=== PATIENT | male | born 1980 | race African-American/Black ===

== ENCOUNTER 2019-02-14 08:26 | Emergency (ER) | payer OTHER ==
[~2019-02-14] VITALS: Ht 180.3 cm; Wt 118.0 kg
[~2019-02-14 08:26] MED LIST: Albuterol; [UNRECOGNIZED DRUG - OTHER]
[2019-02-14 10:32] LABS: BASOPHILS % 1.2 % (0.0-2.0); EOSINOPHILS % 7.7 % (0.0-5.0); HEMATOCRIT. 42.3 % (42.0-52.0); HEMOGLOBIN. 13.9 g/dL (14.0-18.0); LYMPHOCYTES % 29.6 % (20.0-50.0); MEAN CORPUSCULAR HEMOGLOBIN 22.6 pg (28.0-32.0); MEAN CORPUSCULAR VOLUME 68.7 fL (80.0-94.0); MEAN PLATELET VOLUME 8.6 fl (7.4-10.4); NEUTROPHILS % 53.5 % (40.0-76.0); PLATELET 328 x1000/uL (130-400); RED BLOOD CELL COUNT 6.16 mill/uL (4.7-6.1); RED CELL DISTRIBUTION WIDTH 15.8 % (11.6-14.6)
[2019-02-14 10:38] LABS: CHLORIDE 101 mEq/L (98-107)
[2019-02-14] MEDS ORDERED: METHYLPREDNISOLONE SOD SUCC 125 MG/2 ML VIAL IV STA (10:57)
[2019-02-14] MEDS ORDERED: ALBUTEROL (0.083%) 2.5MG/3ML NEB HHN STA (10:57)
[2019-02-14] MEDS ORDERED: IPRATROPIUM BROMIDE (0.02%) 0.5MG/2.5ML NEB HHN STA (10:57)
[2019-02-14 11:23] LABS: PLATELET ESTIMATE NORMAL
[2019-02-14 14:11] VITALS: BP 159/93
== END 2019-02-14 14:16 | disposition home or self-care (01) ==
LOC: ER 08:26
DX: J45.909 Unspecified asthma, uncomplicated (principal); E16.2 Hypoglycemia, unspecified; R07.9 Chest pain, unspecified; R20.2 Paresthesia of skin; R06.02 Shortness of breath; I10 Essential (primary) hypertension; Z88.8 Allergy status to other drugs, medicaments and biological substances; Z79.899 Other long term (current) drug therapy
CPT/HCPCS: 36415; 71045; 80053; 83880; 84484; 85025; 93005; 94644; 96374; 99285; J2930; J7611

== ENCOUNTER 2020-01-24 23:08 | Inpatient (IN) | payer OTHER ==
[~2020-01-24] VITALS: Ht 180.3 cm; Wt 119.0 kg
[2020-01-25] MEDS ORDERED: IPRATROPIUM BROMIDE (0.02%) 0.5MG/2.5ML NEB HHN STA (00:19)
[2020-01-25] MEDS ORDERED: ALBUTEROL (0.083%) 2.5MG/3ML NEB HHN STA (00:19)
[2020-01-25] MEDS ORDERED: SODIUM CHLORIDE 0.9% 1,000 ML IV ONE ×3 (00:19→03:00)
[2020-01-25] MEDS ORDERED: CLONIDINE 0.2MG TABLET PO ONE (00:30)
[2020-01-25 00:50] LABS: BASOPHILS % 0.5 % (0.0-2.0); HEMATOCRIT. 40.2 % (42.0-52.0); HEMOGLOBIN. 13.2 g/dL (14.0-18.0); LYMPHOCYTES % 13.9 % (20.0-50.0); MEAN CORPUSCULAR HEMOGLOBIN 22.9 pg (28.0-32.0); MEAN CORPUSCULAR VOLUME 69.9 fL (80.0-94.0); MEAN PLATELET VOLUME 8.5 fl (7.4-10.4); MONOCYTES % 9.7 % (2.0-8.0); NEUTROPHILS % 73.9 % (40.0-76.0); PLATELET 292 x1000/uL (130-400); RED BLOOD CELL COUNT 5.76 mill/uL (4.7-6.1); RED CELL DISTRIBUTION WIDTH 15.6 % (11.6-14.6)
[2020-01-25 00:54] LABS: PLATELET ESTIMATE NORMAL
[2020-01-25 00:59] LABS: PROTHROMBIN TIME 10.9 sec (9.6-11.0)
[2020-01-25 01:00] LABS: CHLORIDE 100 mEq/L (98-107)
[2020-01-25] MEDS ORDERED: LEVOFLOXACIN 500MG PREMIX 100 ML IV NR (01:45)
[2020-01-25] MEDS ORDERED: FLUT1BLS9 IH (06:00)
[2020-01-25] MEDS ORDERED: TRIAMTERENE PO (06:01)
[2020-01-25] MEDS ORDERED: MONT10TA21 PO (06:04)
[2020-01-25 07:08] VITALS: BP 165/92
[2020-01-25] MEDS ORDERED: ACETAMINOPHEN 325MG TABLET PO PRN (07:30)
[2020-01-25] MEDS ORDERED: GUAIFENESIN 200MG/10ML SUGAR FREE UDC PO PRN (07:30)
[2020-01-25] MEDS: SODIUM CHLORIDE 0.9% 1,000 ML IV SCH (07:30)
[2020-01-25] MEDS ORDERED: IPRATROPIUM/ALBUTEROL 0.5-3(2.5)MG/3ML NEB NEB PRN (07:30)
[2020-01-25] MEDS ORDERED: ONDANSETRON HCL 4MG/2ML INJ IV PRN (07:30)
[2020-01-25] MEDS ORDERED: PIPERACILLIN/TAZ 3.375G PREMIX 50 ML IV SCH (07:30)
[2020-01-25 08:00] VITALS: BP_SYST 128; BP_SYST 132; BP_DIAS 74; BP_DIAS 80
[2020-01-25] MEDS: METHYLPREDNISOLONE SOD SUCC 125 MG/2 ML VIAL IV SCH ×3 (08:03→21:24)
[2020-01-25] MEDS ORDERED: ENOXAPARIN 40MG/0.4ML SYR SUBCUT SCH (09:00)
[2020-01-25] MEDS: LEVOFLOXACIN 500MG PREMIX 100 ML IV SCH (09:54)
[2020-01-25 11:03] LABS: BASOPHILS % 0.4 % (0.0-2.0); EOSINOPHILS % 3.9 % (0.0-5.0); HEMATOCRIT. 37.2 % (42.0-52.0); HEMOGLOBIN. 12.1 g/dL (14.0-18.0); LYMPHOCYTES % 19.2 % (20.0-50.0); MEAN CORPUSCULAR HEMOGLOBIN 22.7 pg (28.0-32.0); MEAN CORPUSCULAR VOLUME 69.6 fL (80.0-94.0); MONOCYTES % 13.8 % (2.0-8.0); NEUTROPHILS % 62.7 % (40.0-76.0); PLATELET 291 x1000/uL (130-400); RED BLOOD CELL COUNT 5.34 mill/uL (4.7-6.1); RED CELL DISTRIBUTION WIDTH 15.7 % (11.6-14.6)
[2020-01-25] MEDS: IPRATROPIUM/ALBUTEROL 0.5-3(2.5)MG/3ML NEB HHN SCH ×3 (12:44→16:01)
[2020-01-25 14:56] LABS: CHLORIDE 103 mEq/L (98-107)
[2020-01-25 15:04] LABS: CREATINE KINASE MB FRACTION 1.7 ng/mL (0.5-3.6)
[2020-01-25 15:05] LABS: CREATINE KINASE 288 IU/L (39-308)
[2020-01-25 16:00] VITALS: BP 119/84
[2020-01-25 20:00] VITALS: BP 126/81
[2020-01-25 23:57] LABS: CREATINE KINASE 317 IU/L (39-308)
[2020-01-25 23:58] LABS: CREATINE KINASE MB FRACTION 1.9 ng/mL (0.5-3.6)
[2020-01-26] VITALS: BP 146/88
[2020-01-26] MEDS: SODIUM CHLORIDE 0.9% 1,000 ML IV SCH ×3 (03:30→23:30)
[2020-01-26 04:00] VITALS: BP 163/96
[2020-01-26] MEDS: METHYLPREDNISOLONE SOD SUCC 125 MG/2 ML VIAL IV SCH ×3 (05:16→21:05)
[2020-01-26] MEDS: CLONIDINE 0.1MG TABLET PO PRN (05:49)
[2020-01-26 06:53] LABS: HEMATOCRIT. 38.5 % (42.0-52.0); HEMOGLOBIN. 12.3 g/dL (14.0-18.0); LYMPHOCYTES % 7.8 % (20.0-50.0); MEAN CORPUSCULAR HEMOGLOBIN 22.4 pg (28.0-32.0); MEAN PLATELET VOLUME 9.2 fl (7.4-10.4); MONOCYTES % 3.9 % (2.0-8.0); NEUTROPHILS % 88.3 % (40.0-76.0); PLATELET 313 x1000/uL (130-400); RED CELL DISTRIBUTION WIDTH 15.9 % (11.6-14.6)
[2020-01-26 07:10] LABS: CHLORIDE 107 mEq/L (98-107)
[2020-01-26 08:00] VITALS: BP 160/90
[2020-01-26] MEDS: LEVOFLOXACIN 500MG PREMIX 100 ML IV SCH (08:26)
[2020-01-26] MEDS: ENOXAPARIN 30MG/0.3ML SYR SUBCUT SCH ×2 (08:34→20:56)
[2020-01-26] MEDS: IPRATROPIUM/ALBUTEROL 0.5-3(2.5)MG/3ML NEB HHN SCH ×3 (09:16→17:27)
[2020-01-26 12:00] VITALS: BP 133/74
[2020-01-26 16:00] VITALS: BP 135/83
[2020-01-26] MEDS ORDERED: PNEUMOCOCCAL 23-VAL P-SAC VAC 0.5 ML IM ONE (16:30)
[2020-01-26 20:00] VITALS: BP 144/84
[2020-01-27] VITALS: BP 147/77
[2020-01-27 04:00] VITALS: BP 123/60
[2020-01-27] MEDS: METHYLPREDNISOLONE SOD SUCC 125 MG/2 ML VIAL IV SCH ×2 (06:18→14:26)
[2020-01-27 08:00] VITALS: BP 159/96
[2020-01-27] MEDS: LEVOFLOXACIN 500MG PREMIX 100 ML IV SCH (08:38)
[2020-01-27] MEDS: CLONIDINE 0.1MG TABLET PO PRN (08:38)
[2020-01-27] MEDS: ENOXAPARIN 30MG/0.3ML SYR SUBCUT SCH (08:39)
[2020-01-27] MEDS: SODIUM CHLORIDE 0.9% 1,000 ML IV SCH (09:30)
[2020-01-27] MEDS: IPRATROPIUM/ALBUTEROL 0.5-3(2.5)MG/3ML NEB HHN SCH ×3 (09:35→16:43)
[2020-01-27 12:00] VITALS: BP 132/83
[2020-01-27 16:00] VITALS: BP 134/84
[2020-01-27 16:40] VITALS: BP 134/84
== END 2020-01-27 17:35 | disposition home or self-care (01) | DRG 720 ==
LOC: ER 23:57 → EDBEDREQ 01-25 00:27 → EDBEDREQSVC 01-25 03:29 → EDBEDREQTM 01-25 03:29 → ENRESERV 01-25 03:48 → 5WST 01-25 05:49
PROVIDERS: ADMIT Internal Medicine; ATTEND Internal Medicine
DX: A41.9 Sepsis, unspecified organism (principal); J96.01 Acute respiratory failure with hypoxia; E87.2 Acidosis; J18.9 Pneumonia, unspecified organism; J45.901 Unspecified asthma with (acute) exacerbation; I10 Essential (primary) hypertension; F17.200 Nicotine dependence, unspecified, uncomplicated; J20.9 Acute bronchitis, unspecified
CPT/HCPCS: 36415; 71045; 80048; 80053; 82550; 82553; 83605; 83880; 84145; 84484; 85025; 87070; 87420; 87804; 90732; 93005; 93970; 94640; J1650; J1956; J2930; J7030

== ENCOUNTER 2020-05-28 18:17 | Inpatient (IN) | payer OTHER ==
[~2020-05-28] VITALS: Ht 180.3 cm; Wt 117.9 kg
[~2020-05-28 18:17] MED LIST changes: +FLUT1BLS9 IH; +MONT10TA21 PO; +TRIAMTERENE PO; -[UNRECOGNIZED DRUG - OTHER]
[2020-05-28] MEDS ORDERED: SODIUM CHLORIDE 0.9% 1,000 ML IV ONE ×2 (18:43→19:30)
[2020-05-28] MEDS ORDERED: ONDANSETRON 4MG ODT PO STA (18:43)
[2020-05-28] MEDS ORDERED: LAMOTRIGINE 100MG TABLET PO SCH (19:00)
[2020-05-28] MEDS ORDERED: LAMOTRIGINE 25MG TABLET PO SCH (19:15)
[2020-05-28] MEDS ORDERED: FOLIC ACID 1 MG, THIAMINE HCL 100 MG, MVI, ADULT NO.1 10 ML in DEXTROSE 5% WATER 1,000 ML IV ONE ×4 (19:30)
[2020-05-28] MEDS ORDERED: LORAZEPAM 2MG/ML CPJ IV ONE (19:30)
[2020-05-28 20:03] LABS: BASOPHILS % 0.4 % (0.0-2.0); EOSINOPHILS % 1.9 % (0.0-5.0); HEMATOCRIT. 39.3 % (42.0-52.0); HEMOGLOBIN. 12.8 g/dL (14.0-18.0); LYMPHOCYTES % 19.2 % (20.0-50.0); MEAN CORPUSCULAR HEMOGLOBIN 22.7 pg (28.0-32.0); MEAN CORPUSCULAR VOLUME 69.5 fL (80.0-94.0); MEAN PLATELET VOLUME 9.2 fl (7.4-10.4); MONOCYTES % 8.7 % (2.0-8.0); NEUTROPHILS % 69.8 % (40.0-76.0); PLATELET 344 x1000/uL (130-400); RED BLOOD CELL COUNT 5.66 mill/uL (4.7-6.1); RED CELL DISTRIBUTION WIDTH 14.2 % (11.6-14.6)
[2020-05-28 20:04] LABS: CHLORIDE 102 mEq/L (98-107)
[2020-05-28 20:07] LABS: PROTHROMBIN TIME 10.2 sec (9.6-11.0)
[2020-05-28 20:10] LABS: ETHANOL BLOOD < 10 mg/dL
[2020-05-28 20:43] LABS: CLARITY URINE CLEAR (CLEAR); COLOR URINE YELLOW (YELLOW); KETONES URINE NEGATIVE (NEGATIVE); LEUKOCYTE ESTERASE URINE NEGATIVE (NEGATIVE); NITRITE URINE NEGATIVE (NEGATIVE); OCCULT BLOOD URINE NEGATIVE (NEGATIVE); PROTEIN URINE NEGATIVE (NEGATIVE); SPECIFIC GRAVITY URINE 1.005 (1.005-1.030); UROBILINOGEN URINE 0.2 E.U./dL (0.2-1.0)
[2020-05-28 20:56] LABS: PLATELET ESTIMATE NORMAL
[2020-05-28 21:02] LABS: *BARBITURATES SCREEN URINE NEGATIVE (NEGATIVE)
[2020-05-28 21:03] LABS: *BENZODIAZEPINES SCREEN URINE NEGATIVE (NEGATIVE); *COCAINE SCREEN URINE NEGATIVE (NEGATIVE); CANNABINOID URINE SCREEN NEGATIVE (NEGATIVE); METHADONE URINE SCREEN NEGATIVE (NEGATIVE); OPIATES URINE SCREEN NEGATIVE (NEGATIVE); PHENCYCLIDINE URINE SCREEN NEGATIVE (NEGATIVE)
[2020-05-28 21:04] LABS: *AMPHETAMINES SCREEN URINE NEGATIVE (NEGATIVE)
[2020-05-28] MEDS ORDERED: HYDROCODONE/ACETAMINOPHEN 5/325MG TABLET PO PRN (22:30)
[2020-05-28] MEDS ORDERED: LORAZEPAM 2MG/ML CPJ IV PRN (22:30)
[2020-05-28] MEDS ORDERED: CLONIDINE 0.1MG TABLET PO PRN (22:30)
[2020-05-28 23:00] VITALS: BP 170/100
[2020-05-29] VITALS: BP 125/80
[2020-05-29 04:00] VITALS: BP 125/72
[2020-05-29] MEDS: IPRATROPIUM/ALBUTEROL 0.5-3(2.5)MG/3ML NEB HHN SCH ×3 (04:00→11:47)
[2020-05-29 08:00] VITALS: BP 134/90
[2020-05-29] MEDS ORDERED: METOPROLOL TARTRATE 50MG TABLET PO SCH (09:00)
[2020-05-29] MEDS ORDERED: THIAMINE HCL 100MG TABLET PO SCH (09:00)
[2020-05-29] MEDS ORDERED: FOLIC ACID 1MG TABLET PO SCH (09:00)
[2020-05-29] MEDS ORDERED: FAMOTIDINE 20MG TABLET PO SCH (09:00)
[2020-05-29] MEDS ORDERED: MULTIVITAMINS,THER W-MINERALS TABLET PO SCH (09:00)
[2020-05-29] MEDS ORDERED: CHLORDIAZEPOXIDE 25MG CAPSULE PO SCH (09:00)
[2020-05-29 12:00] VITALS: BP 110/79
[2020-05-29] MEDS ORDERED: L25 PO (12:55)
[2020-05-29] MEDS ORDERED: THIA100T72 PO (12:55)
[2020-05-29] MEDS ORDERED: MULT-1116 MT (12:56)
[2020-05-29] MEDS ORDERED: METO-293 MT (12:56)
[2020-05-29 13:03] VITALS: BP 110/79
== END 2020-05-29 15:05 | disposition home or self-care (01) | DRG 199 ==
LOC: ER 18:17 → 6WST 20:16 → EDBEDREQ 20:19 → EDBEDREQTM 20:19 → ENRESERV 21:15
PROVIDERS: ADMIT Internal Medicine; ATTEND Internal Medicine
DX: I16.0 Hypertensive urgency (principal); F10.239 Alcohol dependence with withdrawal, unspecified; G40.909 Epilepsy, unspecified, not intractable, without status epilepticus; J45.909 Unspecified asthma, uncomplicated; I10 Essential (primary) hypertension; Y90.9 Presence of alcohol in blood, level not specified; E66.9 Obesity, unspecified; D64.9 Anemia, unspecified; Z88.0 Allergy status to penicillin; Z79.899 Other long term (current) drug therapy; Z68.36 Body mass index [BMI] 36.0-36.9, adult; Z71.41 Alcohol abuse counseling and surveillance of alcoholic
CPT/HCPCS: 36415; 71045; 80053; 80305; 80320; 81003; 82962; 83605; 85025; 93005; 94640; 96365; 99285; J2060; J3411; J3490; J7030; J7070; Q0162; G0480

== ENCOUNTER 2020-07-15 07:38 | Emergency (ER) | payer OTHER ==
[~2020-07-15] VITALS: Ht 180.3 cm; Wt 125.0 kg
[~2020-07-15 07:38] MED LIST changes: +L25 PO; +METO-293 MT; +MULT-1116 MT; +THIA100T72 PO
[2020-07-15] MEDS ORDERED: SODIUM CHLORIDE 0.9% 1,000 ML IV ONE (08:37)
[2020-07-15] MEDS ORDERED: ONDANSETRON HCL 4MG/2ML INJ IV STA (08:37)
[2020-07-15] MEDS ORDERED: FAMOTIDINE 20MG/2ML VIAL IV ONE (08:45)
[2020-07-15] MEDS ORDERED: LORAZEPAM 2MG/ML CPJ IV ONE (08:45)
[2020-07-15 08:59] LABS: BASOPHILS % 0.8 % (0.0-2.0); EOSINOPHILS % 0.7 % (0.0-5.0); HEMATOCRIT. 37.5 % (42.0-52.0); HEMOGLOBIN. 12.5 g/dL (14.0-18.0); LYMPHOCYTES % 19.2 % (20.0-50.0); MEAN CORPUSCULAR HEMOGLOBIN 22.3 pg (28.0-32.0); MEAN CORPUSCULAR VOLUME 67.1 fL (80.0-94.0); MEAN PLATELET VOLUME 8.6 fl (7.4-10.4); MONOCYTES % 10.2 % (2.0-8.0); NEUTROPHILS % 69.1 % (40.0-76.0); PLATELET 304 x1000/uL (130-400); RED CELL DISTRIBUTION WIDTH 13.7 % (11.6-14.6)
[2020-07-15 09:04] LABS: CHLORIDE 98 mEq/L (98-107)
[2020-07-15 09:07] LABS: PROTHROMBIN TIME 10.9 sec (9.6-11.0)
[2020-07-15 09:07] LABS: CLARITY URINE CLEAR (CLEAR); COLOR URINE YELLOW (YELLOW); KETONES URINE NEGATIVE (NEGATIVE); LEUKOCYTE ESTERASE URINE NEGATIVE (NEGATIVE); NITRITE URINE NEGATIVE (NEGATIVE); OCCULT BLOOD URINE NEGATIVE (NEGATIVE); PROTEIN URINE NEGATIVE (NEGATIVE); SPECIFIC GRAVITY URINE 1.005 (1.005-1.030); UROBILINOGEN URINE 0.2 E.U./dL (0.2-1.0)
[2020-07-15 09:09] LABS: ETHANOL BLOOD < 10 mg/dL
[2020-07-15 09:27] LABS: PLATELET ESTIMATE NORMAL
[2020-07-15 13:00] VITALS: BP 138/83
== END 2020-07-15 14:30 | disposition home or self-care (01) ==
LOC: ER 07:38
DX: F10.239 Alcohol dependence with withdrawal, unspecified (principal); F41.9 Anxiety disorder, unspecified; I10 Essential (primary) hypertension; J45.909 Unspecified asthma, uncomplicated; Y90.0 Blood alcohol level of less than 20 mg/100 ml; Z88.0 Allergy status to penicillin
CPT/HCPCS: 36415; 71045; 80053; 80320; 81003; 83690; 84484; 85025; 85610; 93005; 96361; 96374; 96375; 99285; J2060; J2405; J3490; J7030; G0480

== ENCOUNTER 2020-09-21 18:43 | Emergency (ER) | payer OTHER ==
[~2020-09-21] VITALS: Ht 180.3 cm; Wt 114.0 kg
[2020-09-21] MEDS ORDERED: ONDANSETRON HCL 4MG/2ML INJ IV STA (19:37)
[2020-09-21] MEDS ORDERED: SODIUM CHLORIDE 0.9% 1,000 ML IV ONE (19:45)
[2020-09-21 20:28] LABS: BASOPHILS % 0.8 % (0.0-2.0); EOSINOPHILS % 1.3 % (0.0-5.0); HEMATOCRIT. 40.4 % (42.0-52.0); HEMOGLOBIN. 13.2 g/dL (14.0-18.0); LYMPHOCYTES % 24.5 % (20.0-50.0); MEAN CORPUSCULAR VOLUME 67.3 fL (80.0-94.0); MONOCYTES % 9.2 % (2.0-8.0); NEUTROPHILS % 64.2 % (40.0-76.0); PLATELET 312 x1000/uL (130-400)
[2020-09-21] MEDS ORDERED: CHLORDIAZEPOXIDE 25MG CAPSULE PO ONE (20:30)
[2020-09-21 20:33] LABS: CHLORIDE 103 mEq/L (98-107)
[2020-09-21 20:37] LABS: CLARITY URINE CLEAR (CLEAR); COLOR URINE YELLOW (YELLOW); KETONES URINE NEGATIVE (NEGATIVE); LEUKOCYTE ESTERASE URINE NEGATIVE (NEGATIVE); NITRITE URINE NEGATIVE (NEGATIVE); OCCULT BLOOD URINE NEGATIVE (NEGATIVE); PH URINE 6.5 (4.5-8.0); PROTEIN URINE NEGATIVE (NEGATIVE); SPECIFIC GRAVITY URINE 1.014 (1.005-1.030); UROBILINOGEN URINE 0.2 E.U./dL (0.2-1.0)
[2020-09-21 20:38] LABS: ETHANOL BLOOD < 10 mg/dL
[2020-09-21 20:49] LABS: *BARBITURATES SCREEN URINE NEGATIVE (NEGATIVE); *BENZODIAZEPINES SCREEN URINE NEGATIVE (NEGATIVE); *COCAINE SCREEN URINE NEGATIVE (NEGATIVE)
[2020-09-21 20:50] LABS: *AMPHETAMINES SCREEN URINE NEGATIVE (NEGATIVE); CANNABINOID URINE SCREEN NEGATIVE (NEGATIVE); METHADONE URINE SCREEN NEGATIVE (NEGATIVE); OPIATES URINE SCREEN NEGATIVE (NEGATIVE); PHENCYCLIDINE URINE SCREEN NEGATIVE (NEGATIVE)
[2020-09-21 21:22] LABS: PLATELET ESTIMATE NORMAL
[2020-09-21] MEDS ORDERED: KETOROLAC 30MG/ML VIAL IV ONE (21:30)
[2020-09-21 22:09] VITALS: BP 144/78
== END 2020-09-21 22:10 | disposition home or self-care (01) ==
LOC: ER 18:43
DX: F10.239 Alcohol dependence with withdrawal, unspecified (principal); Y90.9 Presence of alcohol in blood, level not specified; J45.909 Unspecified asthma, uncomplicated; I10 Essential (primary) hypertension; F41.9 Anxiety disorder, unspecified; Z88.0 Allergy status to penicillin
CPT/HCPCS: 36415; 80053; 80305; 80320; 81003; 85025; 96361; 96374; 96375; 99284; J1885; J2405; J7030; G0480

== ENCOUNTER 2021-01-10 23:21 | Emergency (ER) | payer MEDICAID, OTHER ==
[~2021-01-10] VITALS: Ht 180.3 cm; Wt 110.0 kg
[2021-01-10 23:31] VITALS: BP 132/89
[2021-01-10] MEDS ORDERED: VISCOUS LIDOCAINE 2% 15 ML UDC PO STA (23:51)
[2021-01-10] MEDS ORDERED: MAGNESIUM/ALUMINUM HYDROXIDE/SIMETHICONE 30ML UDC PO STA (23:51)
[2021-01-11] MEDS ORDERED: FAMOTIDINE 20MG TABLET PO ONE
[2021-01-11 00:24] LABS: BASOPHILS % 0.8 % (0.0-2.0); HEMATOCRIT. 38.7 % (42.0-52.0); HEMOGLOBIN. 12.7 g/dL (14.0-18.0); LYMPHOCYTES % 23.9 % (20.0-50.0); MEAN CORPUSCULAR HEMOGLOBIN 21.6 pg (28.0-32.0); MEAN CORPUSCULAR VOLUME 65.9 fL (80.0-94.0); MEAN PLATELET VOLUME 8.3 fl (7.4-10.4); MONOCYTES % 8.1 % (2.0-8.0); NEUTROPHILS % 64.2 % (40.0-76.0); PLATELET 283 x1000/uL (130-400); RED BLOOD CELL COUNT 5.88 mill/uL (4.7-6.1); RED CELL DISTRIBUTION WIDTH 14.3 % (11.6-14.6)
[2021-01-11 00:45] LABS: CHLORIDE 103 mEq/L (98-107)
[2021-01-11 01:10] LABS: PLATELET ESTIMATE NORMAL
[2021-01-11 01:26] LABS: CLARITY URINE CLEAR (CLEAR); COLOR URINE YELLOW (YELLOW); KETONES URINE NEGATIVE (NEGATIVE); LEUKOCYTE ESTERASE URINE NEGATIVE (NEGATIVE); NITRITE URINE NEGATIVE (NEGATIVE); OCCULT BLOOD URINE NEGATIVE (NEGATIVE); PH URINE 7.5 (4.5-8.0); PROTEIN URINE NEGATIVE (NEGATIVE); SPECIFIC GRAVITY URINE 1.009 (1.005-1.030); UROBILINOGEN URINE 0.2 E.U./dL (0.2-1.0)
[2021-01-11] MEDS ORDERED: FAMO-135 MT (01:34)
== END 2021-01-11 01:52 | disposition home or self-care (01) ==
LOC: ER 23:21
DX: K25.9 Gastric ulcer, unspecified as acute or chronic, without hemorrhage or perforation (principal); D64.9 Anemia, unspecified; F10.10 Alcohol abuse, uncomplicated; I10 Essential (primary) hypertension; J45.909 Unspecified asthma, uncomplicated; Y90.9 Presence of alcohol in blood, level not specified; Z88.0 Allergy status to penicillin
CPT/HCPCS: 36415; 80053; 81003; 85025; 93005; 99284

== ENCOUNTER 2021-10-12 18:19 | Emergency (ER) | payer MEDICAID, OTHER ==
[~2021-10-12] VITALS: Ht 180.3 cm; Wt 118.0 kg
[~2021-10-12 18:19] MED LIST changes: +FAMO-135 MT
[2021-10-12 18:22] VITALS: BP 177/92
[2021-10-12] MEDS ORDERED: MAGNESIUM/ALUMINUM HYDROXIDE/SIMETHICONE 30ML UDC PO ONE (19:15)
[2021-10-12] MEDS ORDERED: VISCOUS LIDOCAINE 2% 15 ML UDC PO ONE (19:15)
[2021-10-12] MEDS ORDERED: DIPHENHYDRAMINE 12.5MG/5ML UDC PO ONE (19:15)
[2021-10-12] MEDS ORDERED: METOCLOPRAMIDE HCL 10MG TABLET PO ONE (19:15)
[2021-10-12] MEDS ORDERED: METO-293 MT (20:34)
[2021-10-12] MEDS ORDERED: FAMO-135 MT (20:34)
== END 2021-10-12 20:42 | disposition home or self-care (01) ==
LOC: ER 18:19
DX: R10.13 Epigastric pain (principal); F10.229 Alcohol dependence with intoxication, unspecified; J45.909 Unspecified asthma, uncomplicated; I10 Essential (primary) hypertension; Y90.0 Blood alcohol level of less than 20 mg/100 ml; Z79.899 Other long term (current) drug therapy
CPT/HCPCS: 93005; 99284; Q0163; J8597

== ENCOUNTER 2022-03-01 17:19 | Emergency (ER) | payer MEDICAID, OTHER ==
[~2022-03-01] VITALS: Ht 180.3 cm; Wt 123.0 kg
[2022-03-01] MEDS ORDERED: VISCOUS LIDOCAINE 2% 15 ML UDC PO STA (17:48)
[2022-03-01] MEDS ORDERED: DICYCLOMINE 10 MG/5 ML ORAL SYR PO STA (17:48)
[2022-03-01] MEDS ORDERED: MAGNESIUM/ALUMINUM HYDROXIDE/SIMETHICONE 30ML UDC PO STA (17:48)
[2022-03-01 20:01] LABS: CHLORIDE 100 mEq/L (98-107)
[2022-03-01 20:05] LABS: BASOPHILS % 0.4 % (0.0-2.0); EOSINOPHILS % 0.9 % (0.0-5.0); HEMATOCRIT. 39.7 % (42.0-52.0); HEMOGLOBIN. 12.7 g/dL (14.0-18.0); LYMPHOCYTES % 17.3 % (20.0-50.0); MEAN CORPUSCULAR HEMOGLOBIN 21.6 pg (28.0-32.0); MEAN CORPUSCULAR VOLUME 67.3 fL (80.0-94.0); MEAN PLATELET VOLUME 8.6 fl (7.4-10.4); MONOCYTES % 8.5 % (2.0-8.0); NEUTROPHILS % 72.9 % (40.0-76.0); PLATELET 357 x1000/uL (130-400); RED CELL DISTRIBUTION WIDTH 14.7 % (11.6-14.6)
[2022-03-01] MEDS ORDERED: DICYCLOMINE 10 MG/5 ML ORAL SYR PO NR (20:15)
[2022-03-01] MEDS ORDERED: MAGNESIUM/ALUMINUM HYDROXIDE/SIMETHICONE 30ML UDC PO NR (20:15)
[2022-03-01] MEDS ORDERED: VISCOUS LIDOCAINE 2% 15 ML UDC PO NR (20:15)
[2022-03-01] MEDS ORDERED: OMEP40CA20 MT (20:18)
[2022-03-01 20:39] VITALS: BP 142/76
[2022-03-01 23:30] LABS: PLATELET ESTIMATE NORMAL
== END 2022-03-01 20:42 | disposition home or self-care (01) ==
LOC: ER 17:41
DX: R10.13 Epigastric pain (principal); J45.909 Unspecified asthma, uncomplicated; I10 Essential (primary) hypertension; F10.229 Alcohol dependence with intoxication, unspecified; Y90.0 Blood alcohol level of less than 20 mg/100 ml; Z79.899 Other long term (current) drug therapy
CPT/HCPCS: 36415; 71045; 80053; 85025; 99284

== ENCOUNTER 2022-10-03 17:43 | Emergency (ER) | payer MEDICAID, OTHER ==
[~2022-10-03] VITALS: Ht 180.3 cm; Wt 123.0 kg
[~2022-10-03 17:43] MED LIST changes: +OMEP40CA20 MT
[2022-10-03] MEDS ORDERED: DEXAMETHASONE 10 MG/ML VIAL IV ONE (20:45)
[2022-10-03] MEDS ORDERED: IBUPROFEN 600MG TABLET PO ONE (20:45)
[2022-10-03 20:57] VITALS: BP 153/95
[2022-10-03] MEDS ORDERED: TOPUD MT (21:17)
[2022-10-03] MEDS ORDERED: IBUP-2028 MT (21:17)
== END 2022-10-03 21:57 | disposition home or self-care (01) ==
LOC: ER 17:43
DX: J02.9 Acute pharyngitis, unspecified (principal); I10 Essential (primary) hypertension; Z88.0 Allergy status to penicillin; J45.909 Unspecified asthma, uncomplicated
CPT/HCPCS: 96374; 99283; J1100

== ENCOUNTER 2022-10-12 03:31 | Emergency (ER) | payer MEDICAID, OTHER ==
[~2022-10-12] VITALS: Ht 180.3 cm; Wt 125.9 kg
[~2022-10-12 03:31] MED LIST changes: +IBUP-2028 MT; +TOPUD MT
[2022-10-12 04:10] VITALS: BP 164/98
== END 2022-10-12 05:32 | disposition home or self-care (01) ==
LOC: ER 03:31
DX: K12.2 Cellulitis and abscess of mouth (principal); J45.909 Unspecified asthma, uncomplicated; I10 Essential (primary) hypertension; Z87.891 Personal history of nicotine dependence; Z71.6 Tobacco abuse counseling
CPT/HCPCS: 99281; 99406

== ENCOUNTER 2022-12-08 01:05 | Emergency (ER) | payer MEDICAID, OTHER ==
[~2022-12-08] VITALS: Ht 180.3 cm; Wt 124.4 kg
[2022-12-08] MEDS ORDERED: IBUPROFEN 600MG TABLET PO ONE (02:45)
[2022-12-08] MEDS ORDERED: TOPUD MT (04:56)
[2022-12-08] MEDS ORDERED: FLUT9.9S BOTHNSTRLS (04:56)
[2022-12-08 05:25] VITALS: BP 151/85
== END 2022-12-08 05:32 | disposition home or self-care (01) ==
LOC: ER 01:05
DX: J02.9 Acute pharyngitis, unspecified (principal); J45.909 Unspecified asthma, uncomplicated; I10 Essential (primary) hypertension; Z20.822 Contact with and (suspected) exposure to COVID-19; Z88.0 Allergy status to penicillin; Z79.899 Other long term (current) drug therapy
CPT/HCPCS: 87426; 87804; 99283; C9803

== ENCOUNTER 2023-05-14 17:32 | Emergency (ER) | payer OTHER ==
[~2023-05-14] VITALS: Ht 180.3 cm; Wt 122.0 kg
[~2023-05-14 17:32] MED LIST changes: +FLUT9.9S BOTHNSTRLS; +MONT-46 PO; -MONT10TA21 PO
[2023-05-14 17:35] VITALS: O2SAT 99
[2023-05-14] MEDS ORDERED: VISCOUS LIDOCAINE 2% 15 ML UDC PO STA (18:10)
[2023-05-14] MEDS ORDERED: MAGNESIUM/ALUMINUM HYDROXIDE/SIMETHICONE 30ML UDC PO STA (18:10)
[2023-05-14] MEDS ORDERED: FAMOTIDINE 20MG TABLET PO ONE (18:15)
[2023-05-14] MEDS ORDERED: MECLIZINE 25MG TABLET PO ONE (18:15)
[2023-05-14 19:12] LABS: BASOPHILS % 0.3 % (0.0-2.0); EOSINOPHILS % 0.4 % (0.0-5.0); LYMPHOCYTES % 15.8 % (20.0-50.0); MEAN CORPUSCULAR HEMOGLOBIN 21.6 pg (28.0-32.0); MEAN CORPUSCULAR VOLUME 66.4 fL (80.0-94.0); MEAN PLATELET VOLUME 8.5 fl (7.4-10.4); MONOCYTES % 8.2 % (2.0-8.0); NEUTROPHILS % 75.3 % (40.0-76.0); PLATELET 337 x1000/uL (130-400); RED BLOOD CELL COUNT 6.03 mill/uL (4.7-6.1); RED CELL DISTRIBUTION WIDTH 15.5 % (11.6-14.6)
[2023-05-14] MEDS ORDERED: MECLIZINE 12.5MG TABLET PO NR (19:15)
[2023-05-14 19:17] LABS: CHLORIDE 101 mEq/L (98-107)
[2023-05-14] MEDS ORDERED: ONDANSETRON HCL 4MG TABLET PO ONE (20:00)
[2023-05-14] MEDS ORDERED: ACETAMINOPHEN 325MG TABLET PO ONE (20:00)
[2023-05-14 20:20] LABS: PLATELET ESTIMATE NORMAL
[2023-05-14] MEDS ORDERED: MAG355OR21 MT (21:43)
[2023-05-14] MEDS ORDERED: FAMO-135 MT (21:43)
[2023-05-14] MEDS ORDERED: ONDA4TAB50 MT (21:52)
[2023-05-14] MEDS ORDERED: KETOROLAC 60MG/2ML VIAL IM ONE (22:00)
[2023-05-14 22:15] VITALS: TEMP 98.5
[2023-05-14] MEDS ORDERED: CLONIDINE 0.2MG TABLET PO ONE (22:15)
[2023-05-14] MEDS ORDERED: CLONIDINE 0.1MG TABLET PO NR (22:30)
[2023-05-14 23:07] VITALS: BP 204/116; PULSE 98; RESP 22
== END 2023-05-14 23:36 | disposition home or self-care (01) ==
LOC: ER 17:32
DX: R42 Dizziness and giddiness (principal); R06.02 Shortness of breath; J45.909 Unspecified asthma, uncomplicated; I10 Essential (primary) hypertension
CPT/HCPCS: 80053; 83690; 85025; 84484; 36415; 70450; 74176; 93005; 99285; J8597; Q0162; J1885; Z7610

== ENCOUNTER 2024-11-03 13:33 | Emergency (ER) | payer MEDICAID, OTHER ==
[~2024-11-03] VITALS: Ht 180.3 cm; Wt 125.0 kg
[~2024-11-03 13:33] MED LIST changes: +CHLO25CA11 PO; -L25 PO; +MAG355OR21 MT; +ONDA4TAB50 MT
[2024-11-03 13:46] VITALS: BP 163/93; RESP 18; TEMP 97.5; O2SAT 100
[2024-11-03 13:54] VITALS: PULSE 111; O2SAT 96
[2024-11-03] MEDS ORDERED: DYZ MT (14:21)
[2024-11-03] MEDS ORDERED: SUCR1TAB MT (14:21)
[2024-11-03] MEDS ORDERED: PANT20TA17 MT (14:21)
[2024-11-03] MEDS ORDERED: ALBU90AE INH (14:21)
[2024-11-03 14:45] LABS: BASOPHILS % 0.4 % (0.0-2.0); EOSINOPHILS % 1.5 % (0.0-5.0); HEMATOCRIT. 42.3 % (42.0-52.0); HEMOGLOBIN. 13.5 g/dL (14.0-18.0); LYMPHOCYTES % 21.4 % (20.0-50.0); MEAN CORPUSCULAR HEMOGLOBIN 22.3 pg (28.0-32.0); MEAN CORPUSCULAR VOLUME 69.8 fL (80.0-94.0); MEAN PLATELET VOLUME 8.9 fl (7.4-10.4); MONOCYTES % 10.9 % (2.0-8.0); NEUTROPHILS % 65.8 % (40.0-76.0); PLATELET 301 x1000/uL (130-400); RED BLOOD CELL COUNT 6.06 mill/uL (4.7-6.1); RED CELL DISTRIBUTION WIDTH 15.2 % (11.6-14.6); WHITE BLOOD COUNT 12.4 x1000/uL (4.5-11.0)
[2024-11-03 14:47] LABS: ADD RBC MORPHOLOGY YES; DIFFERENTIAL COMMENT 1
[2024-11-03 14:56] LABS: CARBON DIOXIDE 29 mEq/L (21-32); CHLORIDE 103 mEq/L (98-107); POTASSIUM 3.9 mEq/L (3.5-5.1); SODIUM 137 mEq/L (136-145)
[2024-11-03 15:01] LABS: CREATININE 0.9 mg/dL (0.6-1.3)
[2024-11-03 15:02] LABS: GLUCOSE 108 mg/dL (70-105); UREA NITROGEN BLOOD 13 mg/dL (9-23)
[2024-11-03 15:08] LABS: ANISOCYTOSIS 1+; MICROCYTOSIS 3+; PLATELET ESTIMATE NORMAL
== END 2024-11-03 16:31 | disposition home or self-care (01) ==
LOC: ER 13:33
DX: K29.70 Gastritis, unspecified, without bleeding (principal); J45.909 Unspecified asthma, uncomplicated; I10 Essential (primary) hypertension; Z76.0 Encounter for issue of repeat prescription; Z79.899 Other long term (current) drug therapy; Z79.51 Long term (current) use of inhaled steroids; Z88.0 Allergy status to penicillin; Z87.19 Personal history of other diseases of the digestive system
CPT/HCPCS: 36415; 80048; 85025; 99283

== ENCOUNTER 2025-09-12 09:46 | Emergency (ER) | payer MEDICAID, OTHER ==
[~2025-09-12] VITALS: Ht 180.3 cm; Wt 122.0 kg
[~2025-09-12 09:46] MED LIST changes: +ALBU90AE INH; +DYZ MT; +PANT20TA17 MT; +SUCR1TAB MT
[2025-09-12 09:52] VITALS: BP 157/99; TEMP 37; O2SAT 97
[2025-09-12 10:04] VITALS: PULSE 89; RESP 18; O2SAT 97
[2025-09-12] MEDS ORDERED: ALBU18HF2 IH (10:28)
[2025-09-12] MEDS ORDERED: TRIA50CA2 PO (10:28)
[2025-09-12] MEDS ORDERED: HYDR25TA MT (10:28)
[2025-09-12] MEDS ORDERED: FAMO40TA7 MT (10:28)
[2025-09-12] MEDS ORDERED: SUCR1TAB MT (10:28)
[2025-09-12] MEDS: FAMOTIDINE 20MG TABLET PO SCH (10:45)
[2025-09-12] MEDS: MAGNESIUM/ALUMINUM HYDROXIDE/SIMETHICONE 30ML UDC PO ONE (10:45)
== END 2025-09-12 10:50 | disposition home or self-care (01) ==
LOC: ER 09:46
DX: I10 Essential (primary) hypertension (principal); K29.70 Gastritis, unspecified, without bleeding; J45.909 Unspecified asthma, uncomplicated; Z76.0 Encounter for issue of repeat prescription; Z79.899 Other long term (current) drug therapy; Z88.0 Allergy status to penicillin
CPT/HCPCS: 99283

== ENCOUNTER 2025-10-31 22:09 | Emergency (ER) | payer MEDICAID, OTHER ==
[~2025-10-31] VITALS: Ht 180.3 cm; Wt 121.0 kg
[~2025-10-31 22:09] MED LIST changes: +ALBU18HF2 IH; +FAMO40TA7 MT; +HYDR25TA MT; +TRIA50CA2 PO
[2025-10-31 22:24] VITALS: BP 160/97; TEMP 37.1; O2SAT 97
[2025-10-31 22:25] VITALS: PULSE 100; RESP 16; O2SAT 100
[2025-10-31] MEDS ORDERED: SUCR1TAB MT (23:18)
[2025-10-31] MEDS ORDERED: DYR5 PO (23:18)
[2025-10-31] MEDS ORDERED: ALBU18HF2 IH (23:18)
[2025-10-31] MEDS ORDERED: HYDR25TA MT (23:18)
== END 2025-10-31 23:42 | disposition home or self-care (01) ==
LOC: ER 22:09
DX: J45.909 Unspecified asthma, uncomplicated (principal); Z76.0 Encounter for issue of repeat prescription; Z79.51 Long term (current) use of inhaled steroids; Z79.899 Other long term (current) drug therapy; Z88.0 Allergy status to penicillin
CPT/HCPCS: 99283